=== PATIENT | male | born 2000 | race Caucasian/White ===

== ENCOUNTER 2022-10-18 16:01 | Emergency (ER) | payer BC ==
[~2022-10-18] VITALS: Ht 193 cm; Wt 126.0 kg
[2022-10-18] MEDS ORDERED: IBUPROFEN 600MG TABLET PO ONE (16:45)
[2022-10-18] MEDS ORDERED: BACITRACIN ZINC OINT UDPKT TOP ONE (16:45)
[2022-10-18 17:20] VITALS: BP 141/89
[2022-10-18] MEDS ORDERED: LIDOCAINE HCL/PF 1% 10 MG/ML 5ML VIAL INFIL ONE (17:45)
[2022-10-18] MEDS ORDERED: IBUP-2029 MT (18:53)
[2022-10-18] MEDS ORDERED: CEPH500C2 MT (18:53)
== END 2022-10-18 19:12 | disposition home or self-care (01) ==
LOC: ER 16:01
DX: S06.0XAA Concussion with loss of consciousness status unknown, initial encounter (principal); S01.511A Laceration without foreign body of lip, initial encounter; V19.9XXA Pedal cyclist (driver) (passenger) injured in unspecified traffic accident, initial encounter; Y93.89 Activity, other specified; Y92.89 Other specified places as the place of occurrence of the external cause; Y99.8 Other external cause status
CPT/HCPCS: 12013; 70450; 70486; 99284; Z7610